=== PATIENT | female | born 1995 | race Hispanic/Latino ===

== ENCOUNTER 2018-02-10 03:35 | Emergency (ER) | payer BC, OTHER ==
[2018-02-10 04:10] LABS: Urine Blood TRACE (NEG); Urine Glucose NEGATIVE (NEG); Urine Protein 2+ (NEG)
[2018-02-10 04:12] LABS: Urine Appearance CLOUDY; Urine Bilirubin NEGATIVE (NEG); Urine Blood TRACE (NEG); Urine Color YELLOW; Urine Glucose NEGATIVE (NEG); Urine Protein 2+ (NEG); Urine Urobilinogen 0.2 mg/dL (0.2-1.0)
[2018-02-10 04:14] LABS: Urine Microscopic Reflex ORDER UMIC
[2018-02-10 04:34] LABS: Urine Culture Reflex Order NOT NEEDED
[2018-02-10 04:35] LABS: Urine Bacteria <20 /HPF (<20); Urine RBC <5 /HPF (NONE SEEN)
[2018-02-10] MEDS ORDERED: ACETAMINOPHEN 500 MG TAB ONE (04:40)
[2018-02-10] MEDS ORDERED: KETOROLAC 30 MG/ML INJ ONE (04:41)
--- NOTE | 2018-02-10 05:00 | EDPHYS ---
Physician Documentation [facility] Name: Berta Cuevas Age: 22 yrs Sex: Female : 1995 Arrival Date: 02/10/2018 Time: 03:38 Bed 5 Private MD: ED Physician Omari Bland HPI: 02/10 04:56 This 22 yrs old Female presents to ER via Ambulatory with complaints of Back tw4 Pain, Urinary Frequency. 04:56 The patient presents with pain that is acute. The symptoms are located in the right mid tw4 back. Onset: The symptoms/episode began/occurred today. The pain does not radiate. Associated signs and symptoms: The patient has no apparent associated signs or symptoms. Modifying factors: The patient symptoms are alleviated by nothing, the patient symptoms are aggravated by nothing. 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 - Social history:: Smoking status: Patient/guardian denies using tobacco. - Ebola Screening: : No symptoms or risks identified at this time. ROS: 04:56 Constitutional: Negative for fever, chills, and weight loss, Eyes: Negative for injury, tw4 pain, redness, and discharge, Cardiovascular: Negative for chest pain, palpitations, and edema, Respiratory: Negative for shortness of breath, cough, wheezing, and pleuritic chest pain, Abdomen/GI: Negative for abdominal pain, nausea, vomiting, diarrhea, and constipation. 04:56 MS/Extremity: Negative for injury and deformity, Skin: Negative for injury, rash, and discoloration. 04:56 Back: Positive for injury or acute deformity. Exam: 04:56 Constitutional: This is a well developed, well nourished patient who is awake, alert, tw4 and in no acute distress. Head/Face: Normocephalic, atraumatic. Chest/axilla: Normal chest wall appearance and motion. Nontender with no deformity. No lesions are appreciated. Cardiovascular: Regular rate and rhythm with a normal S1 and S2. No gallops, murmurs, or rubs. Normal PMI, no JVD. No pulse deficits. Respiratory: Lungs have equal breath sounds bilaterally, clear to auscultation and percussion. No rales, rhonchi or wheezes noted. No increased work of breathing, no retractions or nasal flaring. Abdomen/GI: Soft, non-tender, with normal bowel sounds. No distension or tympany. No guarding or rebound. No evidence of tenderness throughout. 04:56 MS/ Extremity: Pulses equal, no cyanosis. Neurovascular intact. Full, normal range of motion. Neuro: Awake and alert, GCS 15, oriented to person, place, time, and situation. Cranial nerves II-XII grossly intact. Motor strength 5/5 in all extremities. Sensory grossly intact. Cerebellar exam normal. Normal gait. 04:56 Back: pain, that is moderate, of the right mid back. Vital Signs: 03:48 BP 131 / 77; Pulse 73; Resp 16; Pulse Ox 99% on R/A; Weight 83.91 kg; Height 5 ft. 2 lp1 in. (157.48 cm); Pain 0/10; 03:56 Temp 99.3(O); lp1 04:40 BP 116 / 81; Pulse 75; Resp 17; Pulse Ox 100% on R/A; rr5 03:48 Body Mass Index 33.84 (83.91 kg, 157.48 cm) lp1 MDM: 03:55 Patient medically screened. tw4 04:56 Data reviewed: vital signs, nurses notes. Data interpreted: Pulse oximetry: tw4 Interpretation: normal. Counseling: I had a detailed discussion with the patient and/or guardian regarding: the historical points, exam findings, and any diagnostic results supporting the discharge/admit diagnosis. Special discussion: I discussed with the patient/guardian in detail that at this point there is no indication for admission to the hospital. It is understood, however, that if the symptoms persist or worsen the patient needs to return immediately for re-evaluation. 02/10 03:56 Order name: Urinalysis; Complete Time: 04:53 tw4 02/10 03:56 Order name: Urine Culture tw4 02/10 03:58 Order name: Urine Dipstick--Ancillary (enter results); Complete Time: 04:53 lp1 02/10 03:58 Order name: Urine --Ancillary (enter results); Complete Time: 04:56 lp1 02/10 04:15 Order name: Urine Microscopic Only; Complete Time: 04:53 EDMD 02/10 03:58 Order name: Urine Dipstick-Ancillary (obtain specimen); Complete Time: 03:58 lp1 02/10 03:58 Order name: Urine Test (obtain specimen); Complete Time: 03:58 lp1 Administered Medications: 04:40 Drug: TORadol 60 mg Route: IM; Site: left deltoid; rr5 05:21 Follow up: Response: No adverse reaction rr5 04:40 Drug: Tylenol 1000 mg Route: PO; rr5 05:20 Follow up: Response: No adverse reaction rr5 Disposition: 02/10/18 05:00 Discharged to Home. Impression: Urinary tract infection, site not specified. - Condition is Stable. - Discharge Instructions: Urinary Tract Infection, Adult. - Prescriptions for Ibuprofen 600 mg Oral Tablet - take 1 tablet by ORAL route every 6 hours As needed take with food; 30 tablet. Pyridium 200 mg Oral Tablet - take 1 tablet by ORAL route every 8 hours for 3 days; 9 tablet. Macrobid 100 mg Oral Capsule - take 1 capsule by ORAL route every 12 hours for 10 days; 20 capsule. - Work release form, Medication Reconciliation Form, Thank You Letter, Antibiotic Education, Prescription Opioid Use form. - Follow up: Private Physician; When: Upon discharge from the Emergency Department; Reason: If symptoms return, Recheck today's complaints, Continuance of care. - Problem is new. - Symptoms have improved. Signatures: Dispatcher [employer] [facility] Sonia Gore RN RN lp1 Omari Bland MD MD tw4 Jeremias Anguiano, RN RN rr5 Corrections: (The following items were deleted from the chart) 05:23 05:00 02/10/2018 05:00 Discharged to Home. Impression: Urinary tract infection, site rr5 not specified. Condition is Stable. Forms are Medication Reconciliation Form, Thank You Letter, Antibiotic Education, Prescription Opioid Use. Follow up: Private Physician; When: Upon discharge from the Emergency Department; Reason: If symptoms return, Recheck today's complaints, Continuance of care. Problem is new. Symptoms have improved. tw4
--- NOTE | 2018-02-10 05:00 | ER ---
Nurse's Notes [facility] Name: Berta Cuevas Age: 22 yrs Sex: Female : 1995 Arrival Date: 02/10/2018 Time: 03:38 Bed 5 Private MD: Diagnosis: Urinary tract infection, site not specified Presentation: 02/10 03:46 Presenting complaint: Patient states: Constant urination, feeling of thirst since lp1 Thursday; States pain to right and left flanks; Denies any Nausea, vomiting, diarrhea, fever. Transition of care: patient was not received from another setting of care. Onset of symptoms was February 10, 2018. Risk Assessment: Do you want to hurt yourself or someone else? Patient reports no desire to harm self or others. Initial Sepsis Screen: Does the patient meet any 2 criteria? No. Patient's initial sepsis screen is negative. Does the patient have a suspected source of infection? No. Patient's initial sepsis screen is negative. Care prior to arrival: None. 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 - Social history:: Smoking status: Patient/guardian denies using tobacco. - Ebola Screening: : No symptoms or risks identified at this time. Screenin:49 Abuse screen: Denies threats or abuse. Denies injuries from another. Nutritional lp1 screening: No deficits noted. Tuberculosis screening: No symptoms or risk factors identified. Fall Risk None identified. Assessment: 04:02 General: Appears in no apparent distress. Behavior is calm, cooperative, appropriate lp1 for age. Pain: Complains of pain in left low back and right low back Pain currently is 2 out of 10 on a pain scale. Neuro: Level of Consciousness is awake, alert, obeys commands, Oriented to person, place, time, situation. Cardiovascular: Patient's skin is warm and dry. Respiratory: Respiratory effort is even, unlabored. GI: No signs and/or symptoms were reported involving the gastrointestinal system. : Reports urinary frequency, Denies burning with urination. EENT: No signs and/or symptoms were reported regarding the EENT system. Derm: Skin is pink, warm \T\ dry. Musculoskeletal: Circulation, motion, and sensation intact. 05:10 Reassessment: Patient states feeling better. Patient states symptoms have improved. rr5 Pain: Noted to be feeling better after the medication as verbalized. 05:19 Reassessment: discharge instruction and follow up discussed with the patient, work note rr5 given. Vital Signs: 03:48 BP 131 / 77; Pulse 73; Resp 16; Pulse Ox 99% on R/A; Weight 83.91 kg; Height 5 ft. 2 lp1 in. (157.48 cm); Pain 0/10; 03:56 Temp 99.3(O); lp1 04:40 BP 116 / 81; Pulse 75; Resp 17; Pulse Ox 100% on R/A; rr5 03:48 Body Mass Index 33.84 (83.91 kg, 157.48 cm) lp1 ED Course: 03:38 Patient arrived in ED. al2 03:47 Triage completed. lp1 03:48 Arm band placed on left wrist. lp1 03:55 Omari Bland MD is Attending Physician. tw4 03:56 Urine collected: clean catch specimen, clear. lp1 04:02 Sonia Gore, RN is Primary Nurse. lp1 04:03 Patient has correct armband on for positive identification. Pulse ox on. NIBP on. lp1 05:17 No provider procedures requiring assistance completed. Patient did not have IV access rr5 during this emergency room visit. Administered Medications: 04:40 Drug: TORadol 60 mg Route: IM; Site: left deltoid; rr5 05:21 Follow up: Response: No adverse reaction rr5 04:40 Drug: Tylenol 1000 mg Route: PO; rr5 05:20 Follow up: Response: No adverse reaction rr5 Outcome: 05:00 Discharge ordered by . tw4 05:18 Discharged to home ambulatory. rr5 05:18 Condition: stable 05:18 Discharge instructions given to patient, Instructed on discharge instructions, follow up and referral plans. medication usage, Demonstrated understanding of instructions, follow-up care, medications, Prescriptions given X 3. 05:23 Patient left the ED. rr5 Signatures: Sonia Gore RN RN lp1 Ann De Souza Terrence, MD MD tw4 Jeremias Anguiano RN RN rr5 Corrections: (The following items were deleted from the chart) 05:22 05:19 Reassessment: discharge instruction and follow up discussed with the patient. rr5 rr5
== END 2018-02-10 05:23 | disposition home or self-care (01) ==
LOC: ER 03:35
DX: N39.0 Urinary tract infection, site not specified (principal)
CPT/HCPCS: 81003; 81015; 81025; 87086; 87088; 96372; 99284

== ENCOUNTER 2020-05-10 08:57 | Emergency (ER) | payer OTHER ==
--- OUTSIDE RECORDS SUMMARY | 2020-05-10 09:13 | XMS REPORT | Continuity of Care Document ---
:1995 Author Organization [facility] t Address [address] [place] [address] Dr. Parmar [address] [place] [id number] Care Team Providers Name Role Phone Unavailable Unavailable Unavailable Problems This patient has no known problems. Allergies, Adverse Reactions, Alerts This patient has no known allergies or adverse reactions. Medications This patient has no known medications. Procedures This patient has no known procedures. Results This patient has no known results.
--- NOTE | 2020-05-10 10:09 | EDPHYS ---
Physician Documentation [facility] Name: Berta Naranjo Age: 25 yrs Sex: Female : 1995 Arrival Date: 05/10/2020 Time: 09:09 Bed 24 Private MD: ED Physician Omari Bland HPI: 05/10 10:05 This 25 yrs old Female presents to ER via Wheelchair with complaints of Ankle tw4 Injury. 10:05 The patient presents with an injury, pain. The complaints affect the right ankle. tw4 Onset: The symptoms/episode began/occurred today. Context: The problem was sustained at home, resulted from a mis-step by the patient, The mechanism of injury involved inversion of the affected ankle. Associated signs and symptoms: The patient has no apparent associated signs or symptoms. Severity of symptoms: At their worst the symptoms were moderate, in the emergency department the symptoms are unchanged. The patient has not experienced similar symptoms in the past. 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 - Social history:: Smoking status: Patient denies any tobacco usage or history of. ROS: 10:05 Constitutional: Negative for fever, chills, and weight loss, Eyes: Negative for injury, tw4 pain, redness, and discharge, Cardiovascular: Negative for chest pain, palpitations, and edema, Respiratory: Negative for shortness of breath, cough, wheezing, and pleuritic chest pain, Abdomen/GI: Negative for abdominal pain, nausea, vomiting, diarrhea, and constipation, Back: Negative for injury and pain. 10:05 MS/extremity: Positive for injury or acute deformity, pain, swelling, tenderness. Exam: 10:05 Constitutional: This is a well developed, well nourished patient who is awake, alert, tw4 and in no acute distress. Head/Face: Normocephalic, atraumatic. Chest/axilla: Normal chest wall appearance and motion. Nontender with no deformity. No lesions are appreciated. Cardiovascular: Regular rate and rhythm with a normal S1 and S2. No gallops, murmurs, or rubs. Normal PMI, no JVD. No pulse deficits. Respiratory: Lungs have equal breath sounds bilaterally, clear to auscultation and percussion. No rales, rhonchi or wheezes noted. No increased work of breathing, no retractions or nasal flaring. Abdomen/GI: Soft, non-tender, with normal bowel sounds. No distension or tympany. No guarding or rebound. No evidence of tenderness throughout. Back: No spinal tenderness. No costovertebral tenderness. Full range of motion. Skin: Warm, dry with normal turgor. Normal color with no rashes, no lesions, and no evidence of cellulitis. Neuro: Awake and alert, GCS 15, oriented to person, place, time, and situation. Cranial nerves II-XII grossly intact. Motor strength 5/5 in all extremities. Sensory grossly intact. Cerebellar exam normal. Normal gait. 10:05 Musculoskeletal/extremity: Extremities: noted in the right lateral malleolus: decreased ROM, pain. Vital Signs: 09:18 BP 141 / 87; Pulse 96; Resp 14; Temp 98.3(TE); Pulse Ox 100% on R/A; Weight 99.79 kg; ss Height 5 ft. 2 in. (157.48 cm); Pain 8/10; 11:28 BP 119 / 69; Pulse 97; Resp 16; Pulse Ox 98% ; ll1 09:18 Body Mass Index 40.24 (99.79 kg, 157.48 cm) ss MDM: 09:26 Patient medically screened. tw4 14:58 Differential diagnosis: fracture, sprain, arthritis. Data reviewed: vital signs, nurses tw4 notes, radiologic studies, plain films. Data interpreted: Pulse oximetry: Interpretation: normal. Counseling: I had a detailed discussion with the patient and/or guardian regarding: the historical points, exam findings, and any diagnostic results supporting the discharge/admit diagnosis. Special discussion: I discussed with the patient/guardian in detail that at this point there is no indication for admission to the hospital. It is understood, however, that if the symptoms persist or worsen the patient needs to return immediately for re-evaluation. 05/10 09:29 Order name: Ankle Right 3 View XRAY tw4 05/10 10:09 Order name: Splint - Ankle: Aircast; Complete Time: 10:33 tw4 Administered Medications: 10:46 Drug: Ibuprofen 800 mg Route: PO; ll1 Disposition: 05/10/20 10:08 Discharged to Home. Impression: Sprain of ankle. - Condition is Stable. - Discharge Instructions: Ankle Sprain. - Prescriptions for Ibuprofen 800 mg Oral Tablet - take 1 tablet by ORAL route every 8 hours As needed take with food; 30 tablet. - Work release form, Medication Reconciliation Form, Thank You Letter, Antibiotic Education, Prescription Opioid Use form. - Follow up: Private Physician; When: Upon discharge from the Emergency Department; Reason: Recheck today's complaints, Continuance of care, Re-evaluation by your physician. - Problem is new. - Symptoms have improved. Signatures: Dispatcher [employer] EDMS Edel Ly RN RN Omari Bland MD MD tw4 Selena Collins RN RN ll1 Corrections: (The following items were deleted from the chart) 11:06 10:08 05/10/2020 10:08 Discharged to Home. Impression: Sprain of ankle. Condition is ll1 Stable. Forms are Medication Reconciliation Form, Thank You Letter, Antibiotic Education, Prescription Opioid Use. Follow up: Private Physician; When: Upon discharge from the Emergency Department; Reason: Recheck today's complaints, Continuance of care, Re-evaluation by your physician. Problem is new. Symptoms have improved. tw4
--- NOTE | 2020-05-10 10:09 | ER ---
Nurse's Notes [facility] Name: Berta Naranjo Age: 25 yrs Sex: Female : 1995 Arrival Date: 05/10/2020 Time: 09:09 Bed 24 Private MD: Diagnosis: Sprain of ankle Presentation: 05/10 09:18 Chief complaint: Patient states: R lateral ankle pain and swelling that began this ss morning after tripping and rolling ankle. Coronavirus screen: Client denies travel out of the [place] in the last 14 days. Ebola Screen: Patient denies exposure to infectious person. Patient denies travel to an Ebola-affected area in the 21 days before illness onset. Initial Sepsis Screen: Does the patient meet any 2 criteria? No. Patient's initial sepsis screen is negative. Does the patient have a suspected source of infection? No. Patient's initial sepsis screen is negative. Risk Assessment: Do you want to hurt yourself or someone else? Patient reports no desire to harm self or others. Onset of symptoms was May 10, 2020. 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 - Social history:: Smoking status: Patient denies any tobacco usage or history of. Screenin:20 Abuse screen: Denies threats or abuse. Denies injuries from another. Nutritional ss screening: No deficits noted. Tuberculosis screening: Never had TB. Fall Risk None identified. Assessment: 09:20 General: Appears in no apparent distress. comfortable, Behavior is calm, cooperative. ss Pain: Complains of pain in right ankle Pain currently is 8 out of 10 on a pain scale. Quality of pain is described as aching, tender, Pain began 3 hours ago. Is continuous. Neuro: Level of Consciousness is awake, alert, obeys commands, Oriented to person, place, time, situation. Cardiovascular: Capillary refill < 3 seconds is brisk in bilateral fingers Patient's skin is warm and dry. Respiratory: Airway is patent Respiratory effort is even, unlabored, Respiratory pattern is regular, symmetrical. GI: No signs and/or symptoms were reported involving the gastrointestinal system. EENT: Oral mucosa is moist. Derm: Skin is intact, is healthy with good turgor, Skin is dry, Skin is pink, warm \T\ dry. normal. Musculoskeletal: Swelling present in right ankle. 10:20 Reassessment: No changes from previously documented assessment. Patient and/or family vg1 updated on plan of care and expected duration. Pain level reassessed. Vital Signs: 09:18 BP 141 / 87; Pulse 96; Resp 14; Temp 98.3(TE); Pulse Ox 100% on R/A; Weight 99.79 kg; ss Height 5 ft. 2 in. (157.48 cm); Pain 8/10; 11:28 BP 119 / 69; Pulse 97; Resp 16; Pulse Ox 98% ; ll1 09:18 Body Mass Index 40.24 (99.79 kg, 157.48 cm) ED Course: 09:09 Patient arrived in ED. mr 09:19 Triage completed. 09:19 Arm band placed on right wrist. 09:20 Patient has correct armband on for positive identification. Bed in low position. Call light in reach. 09:24 Omari Bland MD is Attending Physician. tw4 10:12 Ankle Right 3 View XRAY In Process Unspecified. EDIA 10:13 X-ray completed. Portable x-ray completed in exam room. Patient tolerated procedure mh1 well. 10:19 Edel Ly, RN is Primary Nurse. 10:32 Air stirrup applied to right ankle. dh3 11:06 No provider procedures requiring assistance completed. Patient did not have IV access vg1 during this emergency room visit. Administered Medications: 10:46 Drug: Ibuprofen 800 mg Route: PO; ll1 Outcome: 10:08 Discharge ordered by . tw4 11:06 Patient left the ED. ll1 11:06 Discharged to home ambulatory. vg1 11:06 Condition: stable 11:06 Discharge instructions given to patient, Instructed on discharge instructions, follow up and referral plans. medication usage, Demonstrated understanding of instructions, follow-up care, medications, splint care, Prescriptions given X 1. Signatures: Dispatcher [employer] [facility] Tricia Stearns mr [facility] Edel Ly RN RN ss Gayle Carmichael 3 Omari Bland MD MD tw4 Nicki Guillen, RN RN vg1 Selena Collins RN RN ll1
--- NOTE | 2020-05-10 10:51 | RAD REPORT ---
EXAM DESCRIPTION: RAD - Ankle Right 3 View - 05/10/2020 10:11 am CLINICAL HISTORY: Trip and fall, twisting injury, ankle pain COMPARISON: None. FINDINGS: No fracture, dislocation or periosteal reaction. No joint effusion seen. No joint space na rrowing. Lateral soft tissue swelling is present. IMPRESSION: Soft tissue swelling with no right ankle fracture.
[2020-05-10] MEDS ORDERED: IBUPROFEN 400 MG TAB ONE (11:01)
[2020-05-10 11:11] VITALS: BP 141/87; TEMP 98.3; O2SAT 100
== END 2020-05-10 11:06 | disposition home or self-care (01) ==
LOC: ER 08:57
DX: S93.401A Sprain of unspecified ligament of right ankle, initial encounter (principal); X58.XXXA Exposure to other specified factors, initial encounter; Y93.9 Activity, unspecified; Y92.009 Unspecified place in unspecified non-institutional (private) residence as the place of occurrence of the external cause
CPT/HCPCS: 99284